=== PATIENT | female | born 1975 | race Caucasian/White ===

== ENCOUNTER 2019-10-07 16:42 | Emergency (ER) | payer MEDICAID, OTHER ==
[~2019-10-07] VITALS: Ht 167.6 cm; Wt 59.0 kg
[2019-10-07 16:58] VITALS: BP 126/86
[2019-10-07] MEDS ORDERED: AZITHROMYCIN 250 MG TAB PO ONE (18:00)
[2019-10-07] MEDS ORDERED: cefTRIAXone SOD 500 MG VL IM ONE (18:00)
[2019-10-07 18:09] LABS: Urine Amorphous Crystal FEW /hpf (None Seen); Urine Bacteria FEW /hpf (None Seen); Urine Blood Negative /uL (Negative); Urine Mucus FEW (None Seen); Urine Specific Gravity 1.023 (1.001-1.035); Urine WBC 9 /hpf (0 - 5)
== END 2019-10-07 18:17 | disposition home or self-care (01) ==
LOC: ER 16:42
DX: N76.0 Acute vaginitis (principal); B96.89 Other specified bacterial agents as the cause of diseases classified elsewhere; F17.210 Nicotine dependence, cigarettes, uncomplicated; Z20.2 Contact with and (suspected) exposure to infections with a predominantly sexual mode of transmission
CPT/HCPCS: 81001; 96372; 99283; J0696